=== PATIENT | male | born 1995 | race Two or more races ===

== ENCOUNTER 2017-04-10 14:52 | Emergency (ER) | payer BC ==
[2017-04-10 15:03] VITALS: BP 118/70
--- NOTE | 2017-04-10 15:04 | UC ---
Back Pain HPI - HPI Summary HPI Summary: 22 YEAR OLD MALE PRESENTS WITH LOW BACK PAIN. NO TRAUMA. - History of Current Complaint Chief Complaint: UCBackPain Stated Complaint: BACK PAIN Time Seen by Provider: 04/10/17 15:04 Hx Obtained From: Patient Onset/Duration: Sudden Onset Timing: Constant Severity Initially: Moderate Severity Currently: Moderate Pain Scale Used: 0-10 Numeric - 8 Character: Sharp Aggravating Factor(s): Movement Alleviating Factor(s): Rest, Position - Allergies/Home Medications Allergies/Adverse Reactions: Allergies Allergy/AdvReac Type Severity Reaction Status Date / Time No Known Allergies Allergy Verified 04/10/17 15:03 PMH/Surg Hx/FS Hx/Imm Hx Previously Healthy: Yes - Surgical History Surgical History: None - Social History Alcohol Use: Occasionally Substance Use Type: None Smoking Status (MU): Never Smoked Tobacco Review of Systems Constitutional: Negative Skin: Negative Eyes: Negative ENT: Negative Respiratory: Negative Cardiovascular: Negative Gastrointestinal: Negative Genitourinary: Negative Motor: Negative Neurovascular: Negative Musculoskeletal: Other: - LOWER BACK PAIN Neurological: Negative Psychological: Negative All Other Systems Reviewed And Are Negative: Yes Physical Exam Triage Information Reviewed: Yes Appearance: Well-Appearing Vital Signs: Initial Vital Signs Temp 36.6 C 04/10/17 15:00 Pulse 84 04/10/17 15:00 Resp 12 04/10/17 15:00 BP 118/70 04/10/17 15:00 Pulse Ox 99 04/10/17 15:00 Vital Signs Reviewed: Yes Eye Exam: Normal ENT Exam: Normal Dental Exam: Normal Neck exam: Normal Neck: Positive: 1 Respiratory Exam: Normal Cardiovascular Exam: Normal Abdominal Exam: Normal Musculoskeletal: Positive: Other: - LOWER BACK PAIN Neurological Exam: Normal Psychological Exam: Normal Skin Exam: Normal Back Pain Course/Dx - Differential Dx/Diagnosis Provider Diagnoses: LOWER BACK PAIN Discharge - Discharge Plan Condition: Stable Disposition: HOME Prescriptions: Methocarbamol TAB* [Robaxin 500 MG TAB*] 500 mg PO TID PRN #30 tab PRN Reason: Spasms - Back Methylprednisolone [Medrol Dosepak 4 MG*] 4 mg PO .SEE DARELL INSTRUCTION #21 tab Patient Education Materials: Sacroiliitis (ED), Back Pain (ED), Lower Back Exercises (ED) Referrals: Chance Delgadillo MD [Primary Care Provider] -
[2017-04-10] MEDS ORDERED: methylPREDNISolone 125 MG* 2 ML VIAL IM ONE (15:18)
== END 2017-04-10 15:56 | disposition home or self-care (01) ==
LOC: UCEAST 14:52
DX: M54.5 Low back pain (principal)
CPT/HCPCS: 96372; 99212; G0463; J2930

== ENCOUNTER 2018-08-11 20:04 | Emergency (ER) | payer BC ==
--- NOTE | 2018-08-11 21:07 | ED ---
Respiratory - HPI Summary HPI Summary: 23-year-old male presents with hemoptysis today. He states he is coughing up streaks of blood. He states he's had a cold for the past couple days. He states he is coughing up clear mucus. He states he is also had a blood taste in his throat. is not on blood thinners. Denies any sore throat. Admits to some sinus congestion. No abdominal pain. No nausea and vomiting. No chest pain or shortness breath. Nonsmoker. Has no medical conditions. - History of Current Complaint Chief Complaint: EDUpperRespComplaint Stated Complaint: COUGHING UP BLOOD Time Seen by Provider: 08/11/18 20:26 Pain Intensity: 0 - Allergy/Home Medications Allergies/Adverse Reactions: Allergies Allergy/AdvReac Type Severity Reaction Status Date / Time No Known Allergies Allergy Verified 08/11/18 20:16 PMH/Surg Hx/FS Hx/Imm Hx Endocrine/Hematology History: Denies: Hx Anticoagulant Therapy Respiratory History: Reports: Hx Asthma - HX Denies: Hx Chronic Obstructive Pulmonary Disease (COPD) Infectious Disease History: No Infectious Disease History: Denies: Traveled Outside the [place] in Last 30 Days - Family History Known Family History: Positive: Non-Contributory - Social History Alcohol Use: Occasionally Substance Use Type: Reports: None Smoking Status (MU): Never Smoked Tobacco Review of Systems Negative: Fever Negative: Chest Pain Positive: Cough, Other - hemoptysis. Negative: Shortness Of Breath All Other Systems Reviewed And Are Negative: Yes Physical Exam Triage Information Reviewed: Yes Vital Signs On Initial Exam: Initial Vitals Temp Pulse Resp BP Pulse Ox 98.0 F 80 16 146/84 98 08/11/18 20:14 08/11/18 20:14 08/11/18 20:14 08/11/18 20:14 08/11/18 20:14 Vital Signs Reviewed: Yes Appearance: Positive: Well-Appearing Skin: Positive: Warm, Dry Head/Face: Positive: Normal Head/Face Inspection Eyes: Positive: Normal, EOMI, YOVANA, Conjunctiva Clear ENT: Positive: Normal ENT inspection, Pharynx normal, TMs normal Respiratory/Lung Sounds: Positive: Clear to Auscultation, Breath Sounds Present Cardiovascular: Positive: Normal, RRR Abdomen Description: Positive: Nontender, Soft Bowel Sounds: Positive: Present Musculoskeletal: Positive: Normal Neurological: Positive: Normal Psychiatric: Positive: Normal Diagnostics - Vital Signs Vital Signs Temp Pulse Resp BP Pulse Ox 08/11/18 20:14 98.0 F 80 16 146/84 98 - Laboratory Lab Statement: Any lab studies that have been ordered have been reviewed, and results considered in the medical decision making process. - Radiology chest Radiology Interpretation Completed By: ED Physician Summary of Radiographic Findings: no acute disease Disposition - Course Course Of Treatment: 23-year-old male presents with hemoptysis today. He states he is coughing up streaks of blood. He states he's had a cold for the past couple days. He states he is coughing up clear mucus. He states he is also had a blood taste in his throat. is not on blood thinners. Denies any sore throat. Admits to some sinus congestion. No abdominal pain. No nausea and vomiting. No chest pain or shortness breath. Nonsmoker. Has no medical conditions. On exam lungs clear to auscultation. Pharynx normal. Chest x-ray normal. Vitals are stable. No respiratory distress noted. explained likely has a bronchitis or an upper respiratory infection cause the scant bleeding. Told to treat symptomatically. Patient understands agrees with plan. - Differential Dx - Cardiopulmonary Differential Diagnoses - Cardiopulmonary: Bronchitis, Influenza, Lower Resp Infection - Diagnoses Provider Diagnoses: Hemoptysis Discharge - Sign-Out/Discharge Documenting (check all that apply): Patient Departure Patient Received Moderate/Deep Sedation with Procedure: No - Discharge Plan Condition: Good Disposition: HOME Patient Education Materials: Hemoptysis (ED) Referrals: Chance Delgadillo MD [Primary Care Provider] - Additional Instructions: symptoms likely due to bronchitis cough can last up to 4 weeks can use otc cough medication as needed Return to ED if develop any new or worsening symptoms - Billing Disposition and Condition Condition: GOOD Disposition: Home
[2018-08-11 22:26] VITALS: BP 123/66
== END 2018-08-11 22:20 | disposition home or self-care (01) ==
LOC: ED 20:04
DX: R04.2 Hemoptysis (principal)
CPT/HCPCS: 71046; 99282